=== PATIENT | female | born 1970 | race Caucasian/White ===

== ENCOUNTER 2017-08-21 13:31 | Emergency (ER) | payer BC ==
[2017-08-21 13:39] VITALS: BP 119/81
[2017-08-21] MEDS ORDERED: Tetan/Diph/Pertus SYR(Tdap)* 0.5 ML SYR(BOOSTRIX) use SYR IM ONE (13:53)
[2017-08-21] MEDS ORDERED: Acetaminophen TAB* 325 MG PO ONE (13:55)
[2017-08-21] MEDS ORDERED: Benzoin Compound STICK TOPICAL ONE (13:56)
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
== END 2017-08-21 14:25 | disposition home or self-care (01) ==
LOC: UCEAST 13:31
DX: S51.831A Puncture wound without foreign body of right forearm, initial encounter (principal); W27.8XXA Contact with other nonpowered hand tool, initial encounter; Y93.9 Activity, unspecified; Y92.9 Unspecified place or not applicable; Z23 Encounter for immunization
CPT/HCPCS: 90471; 90715; 99212; A9270-GY; G0463

== ENCOUNTER 2019-04-22 09:56 | Emergency (ER) | payer BC ==
--- OUTSIDE RECORDS SUMMARY | 2019-04-22 10:11 | XMS REPORT | Continuity of Care Document ---
:1970 External Reference #:[id number] Author Name Alison Aguilar MD (transmitted by agent of provider Micheline Alford) Address [address] [place] [address] Care Team Providers Name Role Phone Vivienne Bey A, MD, FACP Care Team Information Blast Setter [phone] Problems Active Problems Provider Date Uterine leiomyoma Alison Aguilar MD Onset: 10/13/2011 Dysuria Alison Aguilar MD Onset: 10/13/2011 Endometriosis (clinical) Alison Aguilar MD Onset: 10/13/2011 Abnormal cervical Papanicolaou smear with Alison Aguilar MD Onset: 2018 positive human papillomavirus deoxyribonucleic acid test Herniation of rectum into vagina Alison Aguilar MD Onset: 11/22/2018 Social History Type Date Description Comments Sex Unknown Tobacco Use Start: Unknown Patient has never smoked Smoking Status Reviewed: 09/30/18 Patient has never smoked Allergies, Adverse Reactions, Alerts Description No Known Drug Allergies Medications Active Medications SIG Qnty Indications Ordering Provider Date Probiotic 1 po qd Unknown Vitamin B Complex 1 po qd Unknown Tablets Vitamin B-12 weekly Unknown Injection Digestive Enzymes Unknown Tablets Mirena (52 MG) Unknown 20mcg/24HR IUD Medications Administered in Office Medication SIG Qnty Indications Ordering Provider Date PT SCRN Tbco Id as Non User Alison Aguilar MD 09/30/2018 Injection PT SCRN Tbco Id as Non User Alison Aguilar MD 07/25/2018 Injection B6 [Pyridoxine HCJ ] IV Sri Solorio CNM 01/17/2007 Injection Immunizations Description No Information Available Vital Signs Date Vital Result Comment 09/30/2018 8:02am BP Systolic 132 mmHg BP Diastolic 82 mmHg Height 65 inches 5'5" Weight 140.00 lb BMI (Body Mass Index) 23.3 kg/m2 Last Menstrual Period [id number] 4 Parity 2 07/25/2018 10:26am BP Systolic 128 mmHg BP Diastolic 74 mmHg Height 65 inches 5'5" Weight 136.00 lb BMI (Body Mass Index) 22.6 kg/m2 4 Parity 2 Results Description No Information Available Procedures Date Code Description Status 08/19/2018 [id number] Mammogram Completed 04/26/2010 [id number] Colonoscopy Completed Medical Devices Description No Information Available Encounters Description No Information Available Assessments Description No Information Available Plan of Treatment No Information Available Functional Status Description No Information Available Mental Status Description No Information Available Referrals Description No Information Available
--- OUTSIDE RECORDS SUMMARY | 2019-04-22 10:11 | XMS REPORT | Continuity of Care Document ---
:1970 External Reference #:[id number] Author Name Vivienne Bey MD Address [address] [place] [address] Care Team Providers Name Role Phone Alison Aguilar MD - Obstetrics Care Team Information Radio Control Crane Operator [phone] & Gynecology Mitchell Sainz MD - Neurology Care Team Information Radio Control Crane Operator Vivienne Bey MD FACP - Care Team Information Radio Control Crane Operator [phone] Internal Medicine Melissa aTfoya MD - Care Team Information Radio Control Crane Operator [phone] Dermatology Problems Active Problems Provider Date Polycystic ovary syndrome Vivienne Bey MD Onset: 01/09/2019 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 Allergies, Adverse Reactions, Alerts Description No Known Drug Allergies Medications Active Medications SIG Qnty Indications Ordering Provider Date Regina Womenkirti L64.9 Palafox A 01/09/2019 5% MD Sotero Foam Vitamin B-12 2 sublingual every E53.9 Palafox A 11/02/2017 500mcg day MD Sotero Tablets Sub 5-HTP 2 every day Unknown 12/25/2016 50mg Capsules Alison Haddad 07/26/2015 20mcg/24HR IUAngel Drake MD Pro-Biotic Blend 1 by mouth every day Unknown 04/26/2014 Capsules Benzoyl Peroxide apply 1 application 60gm L70.0 Vivienne Goode 11/28/2013 5% topically to MD Sotero Gel affected area 2 times per day for acne Saw [place] Every night, 320 MG Unknown 160mg for PCOS acne Capsules Magnesium Magnesium Complex -- Unknown 250mg Every day, 500 MG Tablets Medications Administered in Office Medication SIG Qnty Indications Ordering Provider Date Inj, Vitamin B-12 Vivienne Bey MD 11/05/2017 Cyanocobalamin, Up To 1000 mcg Injection TherapeuticVivienne MD 11/05/2017 Prophylactic,Diagnosic Injection (SC / I M) Injection Inj, Vitamin B-12 Vivienne Bey MD 10/12/2016 Cyanocobalamin, Up To 1000 mcg Injection TherapeuticVivienne MD 10/12/2016 Prophylactic,Diagnosic Injection (SC / I M) Injection Inj, Vitamin B-12 Vivienne Bey MD 04/10/2016 Cyanocobalamin, Up To 1000 mcg Injection TherapeuticVivienne MD 04/10/2016 Prophylactic,Diagnosic Injection (SC / I M) Injection Inj, Vitamin B-12 Vivienne Bey MD 11/01/2015 Cyanocobalamin, Up To 1000 mcg Injection TherapeuticVivienne MD 11/01/2015 Prophylactic,Diagnosic Injection (SC / I M) Injection Inj, Vitamin B-12 Vivienne Bey MD 09/13/2015 Cyanocobalamin, Up To 1000 mcg Injection TherapeuticVivienne MD 09/13/2015 Prophylactic,Diagnosic Injection (SC / I M) Injection Inj, Vitamin B-12 Vivienne Bey MD 04/12/2015 Cyanocobalamin, Up To 1000 mcg Injection TherapeuticVivienne MD 04/12/2015 Prophylactic,Diagnosic Injection (SC / I M) Injection Inj, Vitamin B-12 Vivienne Bey MD 01/21/2015 Cyanocobalamin, Up To 1000 mcg Injection TherapeuticVivienne MD 01/21/2015 Prophylactic,Diagnosic Injection (SC / I M) Injection Inj, Vitamin B-12 Vivienne Bey MD 12/14/2014 Cyanocobalamin, Up To 1000 mcg Injection Therapeutic, Vivienne Bey MD 12/14/2014 Prophylactic,Diagnosic Injection (SC / I M) Injection Inj, Vitamin B-12 [facility] 11/23/2014 Cyanocobalamin, Up To 1000 mcg Injection Therapeutic, [facility] 11/23/2014 Prophylactic,Diagnosic Injection (SC / I M) Injection Inj, Vitamin B-12 [facility] 11/16/2014 Cyanocobalamin, Up To 1000 mcg Injection Therapeutic, [facility] 11/16/2014 Prophylactic,Diagnosic Injection (SC / I M) Injection Inj, Vitamin B-12 [facility] 11/09/2014 Cyanocobalamin, Up To 1000 mcg Injection Therapeutic, [facility] 11/09/2014 Prophylactic,Diagnosic Injection (SC / I M) Injection Inj, Vitamin B-12 [facility] 11/02/2014 Cyanocobalamin, Up To 1000 mcg Injection Therapeutic, [facility] 11/02/2014 Prophylactic,Diagnosic Injection (SC / I M) Injection Inj, Vitamin B-12 Vivienne Bey MD 10/25/2014 Cyanocobalamin, Up To 1000 mcg Injection Therapeutic, Vivienne Bey MD 10/25/2014 Prophylactic,Diagnosic Injection (SC / I M) Injection Inj, Vitamin B-12 Vivienne Bey MD 05/21/2014 Cyanocobalamin, Up To 1000 mcg Injection Therapeutic, Vivienne Bey MD 05/21/2014 Prophylactic,Diagnosic Injection (SC / I M) Injection Inj, Vitamin B-12 Vivienne Bey MD 11/27/2013 Cyanocobalamin, Up To 1000 mcg Injection Therapeutic, Vivienne Bey MD 11/27/2013 Prophylactic,Diagnosic Injection (SC / I M) Injection Inj, Vitamin B-12 Vivienne Bey MD 11/13/2013 Cyanocobalamin, Up To 1000 mcg Injection Therapeutic, Vivienne Bey MD 11/13/2013 Prophylactic,Diagnosic Injection (SC / I M) Injection Inj, Vitamin B-12 Vivienne Bey MD 10/26/2013 Cyanocobalamin, Up To 1000 mcg Injection TherapeuticVivienne MD 10/26/2013 Prophylactic,Diagnosic Injection (SC / I M) Injection Inj, Vitamin B-12 Vivienne Bey MD 10/17/2013 Cyanocobalamin, Up To 1000 mcg Injection Therapeutic, Vivienne Bey MD 10/17/2013 Prophylactic,Diagnosic Injection (SC / I M) Injection Inj, Vitamin B-12 Vivienne Bey MD 10/06/2013 Cyanocobalamin, Up To 1000 mcg Injection Therapeutic, Vivienne Bey MD 10/06/2013 Prophylactic,Diagnosic Injection (SC / I M) Injection Inj, Vitamin B-12 Vivienne Bey MD 09/29/2013 Cyanocobalamin, Up To 1000 mcg Injection Therapeutic, Vivienne Bey MD 09/29/2013 Prophylactic,Diagnosic Injection (SC / I M) Injection Immunizations CPT Code Status Date Vaccine Lot # [id number] Given 01/09/2019 Influenza Vaccine Quadrivalent [id number] Preser/Antibiotic Free Im Use 88889 Given 02/23/2018 Influenza Vaccine Quadrivalent Preser/Antibiotic Free Im Use 05723 Given 02/08/2017 Influenza Vaccine Quadrivalent [id number] Preser/Antibiotic Free Im Use 87075 Given 01/27/2016 Influenza Virus Split 3 Yrs And Above For [id number] Intramuscular Use 62063 Given 02/28/2014 Influenza Virus Split 3 Yrs And Above For [id number] Flu Shot Intramuscular Use 39119 Given 02/24/2013 Influenza Virus Split 3 Yrs And Above For Intramuscular Use 76399 Given 04/26/2011 Tdap-Tetanus, Diphtheria Toxoids/Acellular Pertussis Vaccine 7+ Vital Signs Date Vital Result Comment 03/20/2019 9:36am Body Temperature 98.6 F O2 % BldC Oximetry 99 % Heart Rate 64 /min BP Systolic 128 mmHg BP Diastolic 75 mmHg BMI (Body Mass Index) 22.9 kg/m2 Weight 140.00 lb Height 65.50 inches 5'5.50" 01/09/2019 9:48am Weight 137.00 lb Results Test Acquired Date Facility Test Result H/L Range Note Laboratory test 01/23/2019 [facility] Estrone 167 pg/mL [address] [place] [address] [phone] Progesterone 0.6 ng/mL 2 Testosterone Total 38.98 ng/dL Normal 8-60 TSH (Thyroid Stim Horm) 4.90 mcIU/mL Normal 0.34-5.60 CBC No Diff 01/23/2019 [facility] White Blood 6.1 10^3/uL Normal 3.5-10.8 [place] [address] Count [phone] Red Blood Count 4.43 10^6/uL Normal 3.70-4.87 Hemoglobin 13.3 g/dL Normal 12.0-16.0 Hematocrit 40 % Normal 35-47 Mean Corpuscular Volume 90 fL Normal 80-97 Mean Corpuscular Hemoglobin 30 pg Normal 27-31 Mean Corpuscular HGB Conc 33 g/dL Normal 31-36 Red Cell Distribution Width 14 % Normal 10-15 Platelet Count 274 10^3/uL Normal 150-450 Mean Platelet Volume 8.9 fL Normal 7.4-10.4 Comp Metabolic 01/23/2019 [facility] Sodium 139 mmol/L Normal 135-145 [place] [address] [phone] Potassium 4.1 mmol/L Normal 3.5-5.0 Chloride 106 mmol/L Normal 101-111 Co2 Carbon Dioxide 28 mmol/L Normal 22-32 Anion Gap 5 mmol/L Normal 2-11 Glucose 81 mg/dL Normal 70-100 Blood Urea Nitrogen 10 mg/dL Normal 6-24 Creatinine 0.72 mg/dL Normal 0.51-0.95 BUN/Creatinine Ratio 13.9 Normal 8-20 Calcium 9.3 mg/dL Normal 8.6-10.3 Total Protein 6.2 g/dL Low 6.4-8.9 Albumin 3.9 g/dL Normal 3.2-5.2 Globulin 2.3 g/dL Normal 2-4 Albumin/Globulin Ratio 1.7 Normal 1-3 Total Bilirubin 0.30 mg/dL Normal 0.2-1.0 Alkaline Phosphatase 59 U/L Normal 34-104 Alt 9 U/L Normal 7-52 Ast 19 U/L Normal 13-39 Egfr Non- 86.8 >60 Egfr 105.1 >60 3 Laboratory test 01/23/2019 [facility] Hemoglobin A1c 5.3 % Normal 4.0-5.6 4 [place] [address] (Glyco HGB) [phone] Lipid Profile 01/23/2019 [facility] Triglycerides 79 5 (Trig/Chol/HDL) [place] [address] mg/dL [phone] Cholesterol 199 mg/dL 6 HDL Cholesterol 80.1 mg/dL 7 LDL Cholesterol 103 mg/dL 8 Laboratory test 01/23/2019 [facility] Aldosterone <4.0 ng/dL <=21 9 finding [place] [address] [phone] Laboratory test 01/13/2019 [facility] Surgical SEE RESULT 10, 11 [place] [address] Pathology BELOW [phone] 1 REFERENCE VALUE Premenopausal :17-200 Postmenopausal : 7-40 ADDITIONAL INFORMATION This test was developed and its performance characteristics determined by [facility] in a manner consistent with CLIA requirements. This test has not been cleared or approved by the U.S. Food and Drug Administration. Test Performed by: [facility] [address] [place] [address] Pipe And Test Supervisor: Jacky Magallanes M.D. Ph.D.; CLIA# [id number] 2 Female reference ranges for Progesterone: Follicular phase.......0.3 - 1.5 ng/ml Mid-luteal phase.......5.2 - 18.5 ng/ml Postmenopausal.........< 0.8 ng/ml 1st trimester.........4.7 - 50.0 ng/ml 2nd trimester.........19.4 - 45.3 ng/ml 3 Because ethnic data is not always readily available, this report includes an eGFR for both -Americans and non- Americans. The National Kidney Disease Education Program (NKDEP) does not endorse the use of the MDRD equation for patients that are not between the ages of 18 and 70, are , have extremes of body size, muscle mass, or nutritional status, or are non- or non-. According to the National Kidney Foundation, irrespective of diagnosis, the stage of the disease is based on the level of kidney function: Stage Description GFR(mL/min/1.73 m(2)) 1 Kidney damage with normal or decreased GFR 90 2 Kidney damage with mild decrease in GFR 60-89 3 Moderate decrease in GFR 30-59 4 Severe decrease in GFR 15-29 5 Kidney failure <15 (or dialysis) 4 Therapeutic target for the treatment of diabetes mellitus patients is <7% HBA1C, and in selective patients <6.0%. Please refer to [place] [employer] Association diabetic care guidelines for further information. 5 Desirable: <150 Borderline High: 150-199 High: 200-499 Very High: >500 6 Desirable: <200 Borderline High: 200-239 High: >239 7 Low: <40 Desirable: 40-60 High: >60 8 Desirable: <100 Near Optimal: 100-129 Borderline High: 130-159 High: 160-189 Very High: >189 9 ADDITIONAL INFORMATION Reference range for patients 11 years and older is based on upright A.M. collection from subjects without sodium restrictions. This test was developed and its performance characteristics determined by [facility] in a manner consistent with CLIA requirements. This test has not been cleared or approved by the U.S. Food and Drug Administration. Test Performed by: [facility] [address] [place] [address] Pipe And Test Supervisor: Jacky Magallanes M.D. Ph.D.; CLIA# [id number] 10 [id number] SEE RESULT BELOW Name: SAGE WEBER : [address]: Megan Colbert MD Acct: [id number] Unit: [id number] AGE: 48 Location: [facility] Re01/13/19 SEX: F Status: DEP REF SPEC: [id number] MICHAEL: 01/13/19 [facility]: Megan Chandler MD REQ: [id number] RECD: 01/13/19-1322 STATUS: SARAH MOSQUERA DR: Vivienne Bey MD _ ORDERED: LEVEL 4/2 COMMENTS: [id number] FINAL DIAGNOSIS 1. Distal esophagus, biopsy: -- Superficial squamous mucosa with no significant pathologic abnormality. -- No evidence of reflux or allergic/eosinophilic esophagitis identified. -- No glandular component identified. 2. Midesophagus, biopsy: -- Superficial squamous mucosa with no significant pathologic abnormality. -- No evidence of reflux or allergic/eosinophilic esophagitis identified. -- No glandular component identified. CLINICAL HISTORY Gastroesophageal reflux disease; dysphagia POST-OPERATIVE DIAGNOSIS EGD: esophagus ??? 38 cm ??? regular; biopsy mid and distal; gastric ??? normal; duodenum - normal GROSS DESCRIPTION 1. The specimen is received in formalin labeled, Biopsy Distal Esophagus, and consists of a 0.8 x 0.8 x 0.1 cm aggregate of valentin-white irregular soft tissue fragments , which is entirely submitted in one cassette. 2. The specimen is received in formalin labeled, Biopsy Mid Esophagus, and consists of a 0.7 x 0.5 x 0.2 cm aggregate of speckled valentin white irregular to polypoid soft tissue fragments which is entirely submitted in one cassette. Signed by and Reported on: Juan Pablo Arana MD [address] OF REPORT DEPARTMENT OF PATHOLOGY, [address] [place] [address] Juan Pablo Arana M.D. Director [facility] # [id number] Procedures Date Code Description Status 08/19/2018 [id number] Mammogram Completed 04/05/2015 [id number] Mammogram Completed 04/26/2010 [id number] Colonoscopy Completed Medical Devices Description No Information Available Encounters Type Date Location Provider Dx Diagnosis Office Visit 03/20/2019 Main Office Vivienne Bey Z00.01 Encounter for 9:40a general adult medical exam w abnormal findings E53.9 Vitamin B deficiency, unspecified R94.6 Abnormal results of thyroid function studies Office Visit 01/09/2019 9:40a Main Office Vivienne Bullock8.2 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, unspecified R53.83 Other fatigue Z23 Encounter for immunization Assessments Date Code Description Provider 03/20/2019 Z00.01 Encounter for general adult medical Vivienne Bey MD examination with abnormal findings 03/20/2019 E53.9 Vitamin B deficiency, unspecified Vivienne Bey MD 03/20/2019 R94.6 Abnormal results of thyroid function studies Vivienne Bey MD 01/09/2019 E28.2 Polycystic ovarian syndrome Vivienne Bey MD 01/09/2019 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 Physical findings discussed in detail.Patient verbalized understanding.E53.9 Vitamin B deficiency , unspecifiedComments:Clinically stable. Continue recommended plan of care. Follow up recommendations discussed. Encouraged to continue efforts related to modification of life style.R94.6 Abnormal results of thyroid function studiesComments:Advised to repeat test after 3 months.Lifestyle and dietary modifications advised.AllFollow up:Labs after 3 months. Please follow on report. 1 year for annual with labs. Functional Status Description No Information Available Mental Status Description No Information Available Referrals Description No Information Available
[2019-04-22 10:18] VITALS: BP 124/78
--- NOTE | 2019-04-22 10:40 | UC ---
Throat Pain/Nasal Rowdy HPI - HPI Summary HPI Summary: Patient presents to urgent care with 36 hours of sore throat. Patient states painful swallowing. Patient states she had a fever last night. Patient denies rash. Patient denies ear pain sinus congestion. Patient without recent sick contacts. Patient reports a fever last night for which to ibuprofen. Did not take any allergies ER antipyretic today. Patient did have T this morning. Patient's medications is entered in the EMR reviewed his visit. Patient is not . - History of Current Complaint Chief Complaint: UCGeneralIllness Stated Complaint: SORE THROAT Time Seen by Provider: 04/22/19 10:17 Hx Obtained From: Patient Hx Last Menstrual Period: no period ?: No Severity: Moderate Pain Intensity: 8 - Allergies/Home Medications Allergies/Adverse Reactions: Allergies Allergy/AdvReac Type Severity Reaction Status Date / Time No Known Allergies Allergy Verified 04/22/19 10:12 Home Medications: Home Medications Magnesium Oxide [Magnesium] 400 mg PO DAILY 04/22/19 [History Confirmed 04/22/19 ] Omeprazole CAP (NF) [Prilosec CAP* 20 MG] 20 mg PO DAILY 04/22/19 [History Confirmed 04/22/19] PMH/Surg Hx/FS Hx/Imm Hx Previously Healthy: Yes - Surgical History Surgical History: Yes Surgery Procedure, Year, and Place: 2007 SURGERY TO REMOVE BASAL CELL CARCINOMA ON NECKLEEPD&C X2. 2 D&C - Family History Known Family History: Positive: None - Social History Alcohol Use: Rare Substance Use Type: None Smoking Status (MU): Never Smoked Tobacco - Immunization History Immunizations Comment: unknown Review of Systems All Other Systems Reviewed And Are Negative: Yes ENT: Positive: Sore Throat Physical Exam - Summary Physical Exam Summary: Vital Signs Reviewed: Yes A+Ox3, no distress, obvious discomfort with swallowing Eyes: Conjunctiva Clear, TIM. EOM intact and full ENT: Hearing grossly normal TM x 2 clear, mild PND, mmoist, uvula midline, no exudate, + diffuse erythema, + symmetry Neck: Positive: Supple Respiratory: Positive: No respiratory distress, No accessory muscle use + CTA throughout no w/r Cardiovascular: RRR nl s1, s2 no m/r CBT <2 sec abd soft + BS nt/nd no guarding, no distension Musculoskeletal Exam: WOO x 4 without difficulty Strength Intact, ROM Intact Neurological: Positive: Alert, + sensation throughout Psychological: Positive: Normal Response To irrigator Skin: Positive: no rash, no ecchymosis Triage Information Reviewed: Yes Vital Signs: Initial Vital Signs Temp 99 F 04/22/19 10:14 Pulse 72 04/22/19 10:14 Resp 16 04/22/19 10:14 BP 124/78 04/22/19 10:14 Pulse Ox 100 04/22/19 10:14 Re-Evaluation - Re-Evaluation First Eval Comment: Pt states lidocaine helped, but declined prescription for home Throat Pain/Nasal Course/Dx - Course Course Of Treatment: Patient presents to urgent care reporting a sore throat for last 36 hours. Patient reports painful swallowing. Patient's age and a fever last night took Motrin improved today. Patient without a drooling. No sick contacts. On exam stable. Patient obvious sore throat. Patient has had erythema but symmetric appearing throat. Rapid strep is positive. We'll start antibiotics. Secretion percussion. Motrin/apap. Warm saltwater. gargle We'll try viscous idocaine here. If therapeutic, with discharge prescription. Return precautions discussed. Patient's agreement with plan. - Differential Dx/Diagnosis Provider Diagnosis: Strep pharyngitis Discharge ED - Sign-Out/Discharge Documenting (check all that apply): Patient Departure All imaging exams completed and their final reports reviewed: No Studies - Discharge Plan Condition: Stable Disposition: HOME Prescriptions: Amoxicillin PO (*) [Amoxicillin 500 MG CAP*] 500 mg PO Q12H #20 cap Patient Education Materials: Strep Throat (ED) Forms: *Gen. Provider Communication Referrals: Vivienne Bey MD [Primary Care Provider] - Additional Instructions: - Okay to alternate ibuprofen (Advil, Motrin) 600mg and Tylenol 1000mg every 3 hours for pain. Take with food. Do NOT take for more than 4-5 days - Okay to gargle and spit warm salt water every 4 hours as needed for pain - Stay well hydrated - frequent sips of cold fluids will be soothing to your throat (popsicles, jello, ice cream, ice water). Avoid excess caffeine until your symptoms have resolved. -Throat infections are spread by oral secretions - do not share eating or drinking utensils until you symptoms are resolved. Clean items that may get your secretions such as cell phones, ipads, computer mouse, television remotes. Once you have been on antibiotics for 2 days, change your toothbrush and your pillowcase. - humidify the air in the room where you sleep - boil water, run a hot steam shower, vaporizer, cups of water by heat register - Contact your doctor to arrange a follow-up appointment as needed - Billing Disposition and Condition Condition: STABLE Disposition: Home
[2019-04-22] MEDS ORDERED: Lidocaine 2% VISCOUS* 15 ML UDC PO ONE (10:48)
== END 2019-04-22 11:08 | disposition home or self-care (01) ==
LOC: UCEAST 09:56
DX: J02.0 Streptococcal pharyngitis (principal)
CPT/HCPCS: 87651; 99211; G0463